=== PATIENT | female | born 2000 | race Hispanic/Latino ===

== ENCOUNTER 2021-04-18 12:15 | Emergency (ER) | payer OTHER ==
[~2021-04-18] VITALS: Ht 157.5 cm; Wt 73.9 kg
[~2021-04-18 12:15] MED LIST: IBUPROFEN400 MG PO; ZOFRAN ODT4 MG SL
[2021-04-18] MEDS ORDERED: VITAMIN D21250 MCG PO (13:09)
[2021-04-18] MEDS ORDERED: CETIRIZINE HCL10 MG PO (13:09)
[2021-04-18] MEDS ORDERED: BUPROPION HCL150 M2 PO (13:10)
[2021-04-18] MEDS ORDERED: PHENTERMINE HCL15 MG PO (13:10)
[2021-04-18] MEDS ORDERED: ZOLOFT25 MG PO (13:10)
[2021-04-18] MEDS ORDERED: POLYMYXIN B-TMP10 ML OPTH (14:12)
== END 2021-04-18 14:37 | disposition home or self-care (01) ==
LOC: ED 12:15
DX: S05.02XA Injury of conjunctiva and corneal abrasion without foreign body, left eye, initial encounter (principal); X58.XXXA Exposure to other specified factors, initial encounter; Z79.899 Other long term (current) drug therapy
CPT/HCPCS: 99283